=== PATIENT | female | born 1975 | race Caucasian/White ===

== ENCOUNTER 2016-10-12 07:05 | Emergency (ER) | payer OTHER ==
[2016-10-12 07:25] VITALS: BP 114/72; PULSE 67; O2SAT 98
[2016-10-12] MEDS ORDERED: MORPHINE SULFATE 4 MG INJ IV ONE (07:32)
[2016-10-12] MEDS ORDERED: Sodium Chloride 0.9% 1000 ML 1,000 ML IV STA (07:32)
[2016-10-12] MEDS ORDERED: Zofran 4 MG/2 ML VIAL IV ONE (07:32)
--- NOTE | 2016-10-12 07:39 | ERPHSYRPT ---
- History of Present Illness Time Seen by Provider: 10/12/16 07:32 Historian: patient Exam Limitations: no limitations Patient Subjective Stated Complaint: lt flank pain Triage Nursing Assessment: lt groin pain yesterday with lt flank pain startign at 0100 this am. nausea with no vomiting. normal bowels. unable to urinate Physician History: 41-year-old white female arrives with complaint of left groin and left lower quadrant abdominal pain since yesterday left flank pain since 1:00 this morning. Patient has had dysuria no hematuria she states she's been unable to urinate this morning other than a small amount.. She has nausea no vomiting no fevers no melena no hematochezia. Patient states that she has had kidney stones in the past and this feels similar. Past medical history includes lupus, kidney stones. Past surgical history includes cholecystectomy lithotripsy hysterectomy C- section. Timing/Duration: yesterday Activities at Onset: none Quality: cramping, sharpness Abdominal Pain Onset Location: LLQ, flank (left flank) Pain Radiation: LLQ, flank (left flank) Severity of Pain-Max: moderate Severity of Pain-Current: moderate Modifying Factors: Improves With: nothing Associated Symptoms: back (left flank pain), nausea, No chest pain, No diaphoresis, No diarrhea, No fever/chills, No fatigue, No headache, No heartburn , No loss of appetite, No neck pain, No rash, No shortness of breath, No syncope , No vomiting, No weakness Previous symptoms: same symptoms as today (similar symptoms with kidney stone in the past) Allergies/Adverse Reactions: erythromycin base Allergy (Verified 05/18/14 23:24) Sulfa (Sulfonamide Antibiotics) Allergy (Verified 10/12/16 07:25) Home Medications: Hydroxychloroquine Sulfate [Plaquenil] 200 mg PO DAILY 10/12/16 [History] Meloxicam 7.5 mg [Mobic 7.5 MG] 7.5 mg PO DAILY 10/12/16 [History] Hx Tetanus, Diphtheria Vaccination/Date Given: Yes Hx Influenza Vaccination/Date Given: Yes Hx Pneumococcal Vaccination/Date Given: No Immunizations Up to Date: Yes - Review of Systems Constitutional: No Fever, No Chills Eyes: No Symptoms Ears, Nose, & Throat: No Symptoms Respiratory: No Cough, No Dyspnea Cardiac: No Chest Pain, No Edema, No Syncope Abdominal/Gastrointestinal: Abdominal Pain (Left lower quadrant pain left groin pain), Nausea, No Vomiting, No Diarrhea, No Constipation, No Hematemesis, No Hematochezia, No Melena, No Dysphagia, No Appetite Changes Genitourinary Symptoms: Dysuria, Urinary Retention, Flank Pain (left flank pain) , No Frequency, No Hematuria, No Hesitancy, No Incontinence, No Urgency, No Menorrhagia, No , No Vaginal Bleeding, No Vaginal Discharge, No Vaginal Itching Musculoskeletal: No Back Pain, No Neck Pain Skin: No Rash Neurological: No Dizziness, No Focal Weakness, No Sensory Changes Psychological: No Symptoms Endocrine: No Symptoms All Other Systems: Reviewed and Negative - Past Medical History Pertinent Past Medical History: Yes History: Other Other Medical History: KIDNEY STONES. LUPUS - Past Surgical History Past Surgical History: Yes Gastrointestinal: Cholecystectomy Female Surgical History: No Pertinent History, Hysterectomy Other Surgical History: LITHOTRIPSY STONE REMOVAL - Social History Smoking Status: Never smoker Exposure to second hand smoke: No Drug Use: none Patient Lives Alone: No - Female History Hx Now: No - Nursing Vital Signs Nursing Vital Signs: Initial Vital Signs Temperature 98.3 F Temperature Source Oral Pulse Rate 67 Respiratory Rate 18 Blood Pressure [] 114/72 Pain Intensity 7 - Physical Exam General Appearance: moderate distress Eye Exam: PERRL/EOMI, eyes nml inspection Ears, Nose, Throat Exam: normal ENT inspection, pharynx normal, moist mucous membranes Neck Exam: normal inspection, non-tender, supple, full range of motion Respiratory Exam: normal breath sounds, lungs clear, No respiratory distress Cardiovascular Exam: regular rate/rhythm, normal heart sounds Gastrointestinal/Abdomen Exam: soft, normal bowel sounds, tenderness (llq tenderness), No distention, No mass, No guarding, No ecchymosis, No pulsatile mass, No rebound, No hernia, No hepatomegaly, No organomegaly, No splenomegaly Back Exam: normal range of motion, CVA tenderness (left flank tenderness), No vertebral tenderness, No rash, No decreased range of motion, No muscle spasm, No point tenderness Extremity Exam: normal inspection, normal range of motion, pelvis stable Neurologic Exam: alert, oriented x 3, cooperative, normal mood/affect, nml cerebellar function, sensation nml, No motor deficits Skin Exam: normal color, warm, dry SpO2 Interpretation: normal (98%) SpO2: 98 Oxygen Delivery: Room Air - Course Nursing assessment & vital signs reviewed: Yes - CT Exams Abdomen/Pelvis CT Interpretation: Discussed w/radiologist (CT abdomen and pelvis: Impression: New 2-3 mm urinary bladder calculus with minimal left ureteral prominence present from recent passage. Enlarging nonobstructing left renal calculus and new faint bilateral nephrocalcinosis.) Ordered Tests: Active Orders 24 hr Category Date Time Status IV Insertion STAT Care 10/12/16 07:32 Active ABDOMEN AND PELVIS W/0 CONTRAS [CT] Stat Exams 10/12/16 07:33 Completed CBC W DIFF Stat Lab 10/12/16 07:47 Completed CMP Stat Lab 10/12/16 07:47 Completed UA W/ MICROSCOPIC Stat Lab 10/12/16 08:50 Completed Medication Summary Discontinued Medications Generic Name Dose Route Start Last Admin Trade Name Freq PRN Reason Stop Dose Admin Sodium Chloride 1,000 mls @ 999 mls/hr 10/12/16 07:32 10/12/16 07:42 Sodium Chloride 0.9% 1000 Ml IV 10/12/16 08:32 999 mls/hr .Q1H1M STA Administration Sodium Chloride Confirm 10/12/16 07:41 Sodium Chloride 0.9% 1000 Ml Administered 10/12/16 07:42 Dose 1,000 mls @ ud .ROUTE .STK-MED ONE Morphine Sulfate 4 mg 10/12/16 07:32 10/12/16 07:42 Morphine Sulfate 4 Mg Inj IV 10/12/16 07:33 4 mg STAT ONE Administration Morphine Sulfate Confirm 10/12/16 07:41 Morphine Sulfate 4 Mg Inj Administered 10/12/16 07:42 Dose 4 mg .ROUTE .STK-MED ONE Ondansetron HCl 4 mg 10/12/16 07:32 10/12/16 07:42 Zofran 4 Mg/2 Ml Vial IV 10/12/16 07:33 4 mg STAT ONE Administration Ondansetron HCl Confirm 10/12/16 07:41 Zofran 4 Mg/2 Ml Vial Administered 10/12/16 07:42 Dose 4 mg .ROUTE .STK-MED ONE Lab/Rad Data: Laboratory Result Diagrams 10/12/16 07:47 10/12/16 07:47 Laboratory Results 10/12/16 10/12/16 10/12/16 Range/Units 08:50 07:47 07:47 WBC 8.4 (4.0-10.5) K/mm3 RBC 4.26 (4.1-5.4) M/mm3 Hgb 12.8 (12.0-16.0) gm/dl Hct 38.1 (35-47) % MCV 89.4 (78-100) fl MCH 30.0 (26-32) pg MCHC 33.6 (32-36) g/dl RDW 12.7 (11.5-14.0) % Plt Count 243 (150-450) K/mm3 MPV 10.6 H (6-9.5) fl Gran % 53.7 (36.0-66.0) % Lymphocytes % 32.3 (24.0-44.0) % Monocytes % 9.1 (0.0-12.0) % Eosinophils % 4.3 (0.00-5.0) % Basophils % 0.6 (0.0-0.4) % Basophils # 0.05 (0-0.4) Sodium 143 (136-145) mEq/L Potassium 3.9 (3.5-5.1) mEq/L Chloride 104 (98-107) mEq/L Carbon Dioxide 26.9 (21-32) mEq/L Anion Gap 15.9 H (5-15) MEQ/L BUN 12 (9-20) mg/dL Creatinine 0.88 (0.55-1.30) mg/dl Estimated GFR > 60 ML/MIN Glucose 106 (70-110) MG/DL Calcium 8.9 (8.5-10.1) mg/dL Total Bilirubin 0.30 (0.2-1.0) mg/dL AST 16 (15-37) U/L ALT 17 (12-78) U/L Alkaline Phosphatase 56 (46-116) U/L Serum Total Protein 7.0 (6.4-8.2) gm/dL Albumin 3.7 (3.4-5.0) g/dL Ur Collection Type CCMS Urine Color YELLOW (YELLOW) Urine Appearance HAZY (CLEAR) Urine pH 5.0 (5-6) Ur Specific [place] 1.030 (1.005-1.025) Urine Protein TRACE (Negative) Urine Ketones NEGATIVE (NEGATIVE) Urine Blood 50 (0-5) Lc/ul Urine Nitrite NEGATIVE (NEGATIVE) Urine Bilirubin NEGATIVE (NEGATIVE) Urine Urobilinogen NORMAL (0-1) mg/dL Ur Leukocyte Esterase TRACE (NEGATIVE) Urine Microscopic RBC 10-15 (0-2) /HPF Urine Microscopic WBC 5-10 (0-5) /HPF Ur Epithelial Cells PACKED (FEW) /HPF Urine Bacteria MODERATE (NEGATIVE) /HPF Urine Glucose NEGATIVE (NEGATIVE) mg/dL Specimen Received 0850 10/12 - Progress Progress: improved Progress Note: 10/12/16 09:02 CT of the abdomen and pelvis was ordered without contrast secondary to the left lower quadrant abdominal pain left flank pain and history of kidney stones in the past with similar symptoms. CT of the abdomen with pelvis showed a new 2-3 mm urinary bladder calculus with minimal left ureteral prominence present from a recent passage. There was enlarging nonobstructing left renal calculus and new faint bilateral nephrocalcinosis noted. Patient is feeling better after IV morphine Zofran IV normal saline.. Will plan to discharge patient with Coffey have her strain her urine plenty of fluids, - Departure Time of Disposition: 09:08 Departure Disposition: Home Clinical Impression: Left flank pain Urolithiasis Qualifiers: Urinary calculus location: bladder Qualified Code(s): N21.0 - Calculus in bladder Condition: Fair Critical Care Time: No Referrals: SHIRA MOJICA MD [Primary Care Provider] - Additional Instructions: Return home. Plenty of fluids. Strain all urine. Coffey 5/325 #15 one orally every 4-6 hours as needed for pain. Follow-up with Dr. Mojica. Return for acute distress or for severe symptoms. Prescriptions: Hydrocodone/Acetaminophen [Coffey 5-325 Tablet] 1 tab PO Q4-6HPRN PRN #15 tablet PRN Reason: Pain
[2016-10-12] MEDS ORDERED: MORPHINE SULFATE 4 MG INJ ONE (07:41)
[2016-10-12] MEDS ORDERED: Sodium Chloride 0.9% 1000 ML 1,000 ML ONE (07:41)
[2016-10-12] MEDS ORDERED: Zofran 4 MG/2 ML VIAL ONE (07:41)
[2016-10-12 08:13] LABS: BASOPHIL % 0.6 % (0.0-0.4); Eosinophil % 4.3 % (0.00-5.0); Granulocytes % 53.7 % (36.0-66.0); Lymphocytes % 32.3 % (24.0-44.0); Mean Cell Volume 89.4 fl (78-100); Mean Platelet Volume 10.6 fl (6-9.5); Monocytes % 9.1 % (0.0-12.0); Platelet Count 243 K/mm3 (150-450); Red Blood Count 4.26 M/mm3 (4.1-5.4); Red Cell Distribution Width 12.7 % (11.5-14.0); White Blood Count 8.4 K/mm3 (4.0-10.5)
[2016-10-12 08:34] LABS: ALBUMIN 3.7 g/dL (3.4-5.0); ALKALINE PHOSPHATASE 56 U/L (46-116); ANION GAP 15.9 MEQ/L (5-15); BLOOD UREA NITROGEN 12 mg/dL (9-20); CHLORIDE 104 mEq/L (98-107); Carbon Dioxide 26.9 mEq/L (21-32); Glucose 106 MG/DL (70-110); Potassium 3.9 mEq/L (3.5-5.1); SGOT/AST 16 U/L (15-37); SGPT/ALT 17 U/L (12-78); SODIUM 143 mEq/L (136-145)
--- NOTE | 2016-10-12 08:37 | XRAY ---
Indication: Left flank pain. Nausea. Multiple contiguous axial images obtained through the abdomen and pelvis without contrast using renal stone protocol. Comparison: November 26, 2014. Lung bases are clear. Heart is not enlarged. There is now a 2-3 mm left posterior urinary bladder calculus. Left ureter is slightly prominent presumed from recent passage of said calculus. No hydronephrosis or perinephric fluid. Previous nonobstructing 5 mm left lower renal calculus today measures 9 mm. There is now faint bilateral nephrocalcinosis. Noncontrasted stomach and bowel loops appear nonobstructed. Normal appendix. No free fluid/air. Again previous cholecystectomy. Remaining liver, pancreas, spleen, adrenal glands, bladder, uterus, and aorta appear unremarkable for noncontrast exam. Osseous structures intact. Impression: New 2-3 mm urinary bladder calculus with minimal left ureteral prominence presumed from recent passage. Enlarging nonobstructing left renal calculus and new faint bilateral nephrocalcinosis. CT DI 14.07
[2016-10-12 08:58] LABS: Bilirubin NEGATIVE (NEGATIVE); Blood 50 Ery/ul (0-5); COMPLETE URINE MICROSCOPIC? YES; Collection Type CCMS; Glucose NEGATIVE (NEGATIVE); Leukocyte Esterase TRACE (NEGATIVE)
[2016-10-12 09:01] LABS: Epithelial Cells PACKED /HPF (FEW)
[2016-10-12 09:02] LABS: Bacteria MODERATE /HPF (NEGATIVE)
[2016-10-12 09:07] LABS: ADD URINE CULTURE? YES (NO)
== END 2016-10-12 09:23 | disposition home or self-care (01) ==
LOC: ED 07:05
DX: R10.32 Left lower quadrant pain (principal); R11.0 Nausea
CPT/HCPCS: 36000; 36415; 74176; 80053; 81000; 85025; 87086; 96360; 96374; 96375; 99284; J2270; J2405

== ENCOUNTER 2017-03-20 09:49 | Emergency (ER) | payer OTHER ==
[2017-03-20 10:02] VITALS: O2SAT 97
[2017-03-20] MEDS ORDERED: BENADRYL 50 MG/ML IV ONE (10:09)
[2017-03-20] MEDS ORDERED: Sodium Chloride 0.9% 1000 ML 1,000 ML IV STA ×2 (10:09→11:51)
[2017-03-20] MEDS ORDERED: MORPHINE SULFATE 10 MG/ML IV ONE ×3 (10:09→11:35)
[2017-03-20] MEDS ORDERED: BENADRYL 50 MG/ML ONE (10:15)
[2017-03-20] MEDS ORDERED: MORPHINE SULFATE 10 MG/ML ONE ×3 (10:16→11:38)
[2017-03-20] MEDS ORDERED: Sodium Chloride 0.9% 1000 ML 1,000 ML ONE ×2 (10:16→11:52)
--- NOTE | 2017-03-20 10:17 | ERPHSYRPT ---
- History of Present Illness Time Seen by Provider: 03/20/17 09:58 Historian: patient Patient Subjective Stated Complaint: Pt states "I had a lithrotripsy done a week and half ago and I knew I was going to pass a stone but I am not sure if it is stuck or what but it really hurts. The pain started at 5 am and it is constant. I vomited this morning as well." Triage Nursing Assessment: Pt alert and oriented X 3, skin pwd. Pt ambulates without difficulty, able to speak in clear full sentences. no apparent respiratory difficutly, holding left lower back Physician History: CC: left flank pain Hx: 41 y/o patient of Dr Gandhi with hx of renal stone disease post lithotripsy. She has hx of lupus. She has new worsened left flank pain radiating to groin, unable to urinate since last night. No fever. Vomited. Hx of hysterectomy. Pain is in left flank, severe, sharp. Timing/Duration: today Allergies/Adverse Reactions: erythromycin base Allergy (Verified 05/18/14 23:24) Sulfa (Sulfonamide Antibiotics) Allergy (Verified 10/12/16 07:25) Home Medications: Hydroxychloroquine Sulfate [Plaquenil] 200 mg PO DAILY 10/12/16 [History] Meloxicam 7.5 mg [Mobic 7.5 MG] 7.5 mg PO DAILY 10/12/16 [History] Hx Tetanus, Diphtheria Vaccination/Date Given: Yes Hx Influenza Vaccination/Date Given: No Hx Pneumococcal Vaccination/Date Given: No Immunizations Up to Date: Yes - Review of Systems Constitutional: No Fever, No Chills Eyes: No Symptoms Ears, Nose, & Throat: No Symptoms Respiratory: No Cough, No Dyspnea Cardiac: No Chest Pain Abdominal/Gastrointestinal: Abdominal Pain, Nausea, Vomiting, No Diarrhea Genitourinary Symptoms: Urinary Retention, Flank Pain (left flank) Musculoskeletal: Back Pain (left) Skin: No Rash Neurological: No Headache All Other Systems: Reviewed and Negative - Past Medical History Pertinent Past Medical History: Yes History: Other Other Medical History: KIDNEY STONES. LUPUS - Past Surgical History Past Surgical History: Yes Gastrointestinal: Cholecystectomy Female Surgical History: No Pertinent History, Hysterectomy Other Surgical History: LITHOTRIPSY STONE REMOVAL - Social History Smoking Status: Never smoker Exposure to second hand smoke: No Drug Use: none Patient Lives Alone: No - Female History Hx Last Menstrual Period: hysterectomy Hx Now: No - Nursing Vital Signs Nursing Vital Signs: Initial Vital Signs Temperature 97.9 F 03/20/17 09:57 Pulse Rate 66 03/20/17 09:57 Respiratory Rate 18 03/20/17 09:57 Blood Pressure 118/86 03/20/17 09:57 O2 Sat by Pulse Oximetry 97 03/20/17 09:57 Pain Scale Pain Intensity 0 - Physical Exam General Appearance: alert, other (uncomfortable appearing) Eye Exam: PERRL/EOMI Ears, Nose, Throat Exam: normal ENT inspection, moist mucous membranes Neck Exam: normal inspection, non-tender, supple Respiratory Exam: normal breath sounds Cardiovascular Exam: regular rate/rhythm Gastrointestinal/Abdomen Exam: soft, tenderness (some left) Back Exam: CVA tenderness (left) Extremity Exam: normal inspection, normal range of motion Neurologic Exam: alert, oriented x 3, cooperative, sensation nml, No motor deficits Skin Exam: warm, dry, No rash SpO2 Interpretation: normal SpO2: 97 Oxygen Delivery: Room Air - Course Nursing assessment & vital signs reviewed: Yes - Radiology Exams KUB X-ray Interpretation: Teleradiologist Report (2 sub 5mm cacifications in left pelvis) - Radiology Ultrasound Exam kidney Ultrasound: tele radiology report (left renal calculus without hydronephrosis or evidence of obstructive uropathy; left renal hyperemic color flow.) Ordered Tests: Active Orders 24 hr Category Date Time Status Cath for Specimen-Straight STAT Care 03/20/17 10:10 Active IV Insertion STAT Care 03/20/17 10:09 Active NPO (ED) STAT Care 03/20/17 10:09 Active KIDNEY [US] Stat Exams 03/20/17 10:10 Completed KUB Stat Exams 03/20/17 10:10 Completed CBC W DIFF Stat Lab 03/20/17 10:26 Completed CMP Stat Lab 03/20/17 10:26 Completed CULTURE,URINE Stat Lab 03/20/17 11:30 Received UA W/ MICROSCOPIC Stat Lab 03/20/17 11:30 Completed Medication Summary Generic Name Dose Route Start Last Admin Trade Name Freq PRN Reason Stop Dose Admin Ceftriaxone Sodium/Dextrose 1 g in 50 mls @ 100 mls/hr 03/20/17 13:09 Rocephin 1 Gm-D5w 50 Ml Bag IV 03/20/17 13:38 STAT STA Discontinued Medications Generic Name Dose Route Start Last Admin Trade Name Bernarda PRN Reason Stop Dose Admin Diphenhydramine HCl 30 mg 03/20/17 10:09 03/20/17 10:18 Benadryl 50 Mg/Ml IV 03/20/17 10:10 30 mg STAT ONE Administration Diphenhydramine HCl Confirm 03/20/17 10:15 Benadryl 50 Mg/Ml Administered 03/20/17 10:16 Dose 50 mg .ROUTE .STK-MED ONE Sodium Chloride 1,000 mls @ 999 mls/hr 03/20/17 10:09 03/20/17 10:27 Sodium Chloride 0.9% 1000 Ml IV 03/20/17 11:09 999 mls/hr .Q1H1M STA Administration Sodium Chloride Confirm 03/20/17 10:16 Sodium Chloride 0.9% 1000 Ml Administered 03/20/17 10:17 Dose 1,000 mls @ ud .ROUTE .STK-MED ONE Sodium Chloride 1,000 mls @ 999 mls/hr 03/20/17 11:51 03/20/17 11:53 Sodium Chloride 0.9% 1000 Ml IV 03/20/17 12:51 999 mls/hr .Q1H1M STA Administration Sodium Chloride Confirm 03/20/17 11:52 Sodium Chloride 0.9% 1000 Ml Administered 03/20/17 11:53 Dose 1,000 mls @ ud .ROUTE .STK-MED ONE Ketorolac Tromethamine 30 mg 03/20/17 11:35 03/20/17 11:39 Toradol 30 Mg Injection IV 03/20/17 11:36 30 mg STAT ONE Administration Ketorolac Tromethamine Confirm 03/20/17 11:38 Toradol 30 Mg Injection Administered 03/20/17 11:39 Dose 30 mg .ROUTE .STK-MED ONE Morphine Sulfate 6 mg 03/20/17 10:09 03/20/17 10:18 Morphine Sulfate 10 Mg/Ml IV 03/20/17 10:10 6 mg STAT ONE Administration Morphine Sulfate Confirm 03/20/17 10:16 Morphine Sulfate 10 Mg/Ml Administered 03/20/17 10:17 Dose 10 mg .ROUTE .STK-MED ONE Morphine Sulfate 6 mg 03/20/17 10:34 03/20/17 10:35 Morphine Sulfate 10 Mg/Ml IV 03/20/17 10:35 6 mg STAT ONE Administration Morphine Sulfate Confirm 03/20/17 10:35 Morphine Sulfate 10 Mg/Ml Administered 03/20/17 10:36 Dose 10 mg .ROUTE .STK-MED ONE Morphine Sulfate 6 mg 03/20/17 11:35 03/20/17 11:40 Morphine Sulfate 10 Mg/Ml IV 03/20/17 11:36 6 mg STAT ONE Administration Morphine Sulfate Confirm 03/20/17 11:38 Morphine Sulfate 10 Mg/Ml Administered 03/20/17 11:39 Dose 10 mg .ROUTE .STK-MED ONE Ondansetron HCl 4 mg 03/20/17 10:24 03/20/17 10:28 Zofran 4 Mg/2 Ml Vial IV 03/20/17 10:25 4 mg STAT ONE Administration Ondansetron HCl Confirm 03/20/17 10:27 Zofran 4 Mg/2 Ml Vial Administered 03/20/17 10:28 Dose 4 mg .ROUTE .STK-MED ONE Lab/Rad Data: Laboratory Result Diagrams 03/20/17 10:26 03/20/17 10:26 Laboratory Results 03/20/17 03/20/17 03/20/17 Range/Units 11:30 10:26 10:26 WBC 12.7 H (4.0-10.5) K/mm3 RBC 4.38 (4.1-5.4) M/mm3 Hgb 13.0 (12.0-16.0) gm/dl Hct 39.2 (35-47) % MCV 89.5 (78-100) fl MCH 29.7 (26-32) pg MCHC 33.2 (32-36) g/dl RDW 12.4 (11.5-14.0) % Plt Count 268 (150-450) K/mm3 MPV 10.2 H (6-9.5) fl Gran % 75.9 H (36.0-66.0) % Lymphocytes % 16.2 L (24.0-44.0) % Monocytes % 5.9 (0.0-12.0) % Eosinophils % 1.7 (0.00-5.0) % Basophils % 0.3 (0.0-0.4) % Basophils # 0.04 (0-0.4) Sodium 140 (136-145) mEq/L Potassium 4.0 (3.5-5.1) mEq/L Chloride 105 (98-107) mEq/L Carbon Dioxide 27.8 (21-32) mEq/L Anion Gap 11.0 (5-15) MEQ/L BUN 10 (9-20) mg/dL Creatinine 0.95 (0.55-1.30) mg/dl Estimated GFR > 60 ML/MIN Glucose 108 (70-110) MG/DL Calcium 8.8 (8.5-10.1) mg/dL Total Bilirubin 0.40 (0.2-1.0) mg/dL AST 14 L (15-37) U/L ALT 21 (12-78) U/L Alkaline Phosphatase 60 (46-116) U/L Serum Total Protein 7.5 (6.4-8.2) gm/dL Albumin 3.9 (3.4-5.0) g/dL Ur Collection Type CATH Urine Color SUZI (YELLOW) Urine Appearance CLOUDY (CLEAR) Urine pH 5.0 (5-6) Ur Specific [place] 1.025 (1.005-1.025) Urine Protein 500 (Negative) Urine Ketones NEGATIVE (NEGATIVE) Urine Blood 250 (0-5) Lc/ul Urine Nitrite NEGATIVE (NEGATIVE) Urine Bilirubin NEGATIVE (NEGATIVE) Urine Urobilinogen NORMAL (0-1) mg/dL Ur Leukocyte Esterase 1+ (NEGATIVE) Urine Microscopic RBC >100 (0-2) /HPF Urine Microscopic WBC 5-10 (0-5) /HPF Ur Epithelial Cells MODERATE (FEW) /HPF Urine Bacteria MODERATE (NEGATIVE) /HPF Urine Culture Reflexed YES (NO) Urine Glucose NEGATIVE (NEGATIVE) mg/dL Specimen Received 03/20/17 1130 - Progress Progress Note: 03/20/17 10:20 IV pain medication ordered. Will get renal sonogram to assess for hydronephrosis. 03/20/17 11:37 Pt has been medicated for pain. Await urine. 03/20/17 13:10 She has pain meds at home. CAlled Dr Gandhi who advised rocpehin/keflex and office follow up. Pt and family given results. She does not appears to have urine retention as small amount dark urine in bladder. Counseled pt/family regarding: lab results, diagnosis, need for follow-up, rad results - Departure Time of Disposition: 13:10 Departure Disposition: Home Clinical Impression: Left flank pain, History of lithotripsy Condition: Stable Critical Care Time: No Referrals: SHIRA MOJICA MD [Primary Care Provider] - KATHY GANDHI [COURTESY STAFF] - Instructions: Kidney Stones Additional Instructions: Push oral fluids. Take your norco as already prescribed. No driving today or while taking norco. Start keflex in AM. Follow up this week with Dr Gandhi. Return for fever, uncontrolled pain, recurrent vomiting or concerns. Prescriptions: Cephalexin Mh 500 mg [Keflex 500 mg] 1 cap PO QID #28 capsule
[2017-03-20] MEDS ORDERED: Zofran 4 MG/2 ML VIAL IV ONE (10:24)
[2017-03-20 10:26] LABS: BASOPHIL % 0.3 % (0.0-0.4); Eosinophil % 1.7 % (0.00-5.0); Granulocytes % 75.9 % (36.0-66.0); Lymphocytes % 16.2 % (24.0-44.0); Mean Cell Volume 89.5 fl (78-100); Mean Corpuscular Hemoglobin 29.7 pg (26-32); Mean Platelet Volume 10.2 fl (6-9.5); Monocytes % 5.9 % (0.0-12.0); Platelet Count 268 K/mm3 (150-450); Red Blood Count 4.38 M/mm3 (4.1-5.4); Red Cell Distribution Width 12.4 % (11.5-14.0); White Blood Count 12.7 K/mm3 (4.0-10.5)
[2017-03-20] MEDS ORDERED: Zofran 4 MG/2 ML VIAL ONE (10:27)
[2017-03-20 10:53] LABS: ALBUMIN 3.9 g/dL (3.4-5.0); ALKALINE PHOSPHATASE 60 U/L (46-116); BLOOD UREA NITROGEN 10 mg/dL (9-20); CHLORIDE 105 mEq/L (98-107); Carbon Dioxide 27.8 mEq/L (21-32); Glucose 108 MG/DL (70-110); SGOT/AST 14 U/L (15-37); SGPT/ALT 21 U/L (12-78); SODIUM 140 mEq/L (136-145); Total Protein 7.5 gm/dL (6.4-8.2)
--- NOTE | 2017-03-20 11:14 | XRAY ---
Indication: Left flank pain. Renal stone disease. Two-dimensional renal sonogram performed. Comparison: None Both kidneys normal in reniform shape with normal color perfusion. Right kidney measures 10.3 x 3.8 x 4.6 cm and the left measures 10.9 x 5.4 x 4.1 cm. Left kidney demonstrates a 1.3 cm lower pole calculus without hydronephrosis and a subcentimeter lower pole cyst. Hyperemic left renal color Doppler flow, possibly inflammatory/infectious. Right kidney negative for solid/cystic mass or hydronephrosis. Cortical medullary differentiation preserved without cortical thinning. Images of the urinary bladder grossly unremarkable. Ureteral jets not seen within the allotted exam time. Impression: 1. Left renal calculus without hydronephrosis or evidence for obstructive uropathy. Also small subcentimeter cyst. 2. Also left renal hyperemic color flow. Rule out inflammatory/infectious process. 3. Negative right renal sonogram.
--- NOTE | 2017-03-20 11:21 | XRAY ---
Indication: Left flank pain. Hematuria. Status post lithotripsy 10 days ago. Comparison: None KUB nonacute and nonobstructed with cholecystectomy clips and CT proven left lower renal calculus. 2 sub-5 mm calcifications in the left pelvis, either phleboliths versus distal ureteral calculi. Remaining solid organs and osseous structures unremarkable.
[2017-03-20] MEDS ORDERED: TORAdol 30 mg Injection IV ONE (11:35)
[2017-03-20] MEDS ORDERED: TORAdol 30 mg Injection ONE (11:38)
[2017-03-20 12:19] LABS: Collection Type CATH
[2017-03-20 12:20] LABS: ADD URINE CULTURE? YES (NO); Bacteria MODERATE /HPF (NEGATIVE); Bilirubin NEGATIVE (NEGATIVE); Blood 250 Ery/ul (0-5); COMPLETE URINE MICROSCOPIC? YES; Epithelial Cells MODERATE /HPF (FEW); Glucose NEGATIVE (NEGATIVE); Leukocyte Esterase 1+ (NEGATIVE)
[2017-03-20] MEDS ORDERED: ROCEPHIN 1 Gm-D5w 50 ml Bag** 1 G/50 ML IVPB IV STA (13:09)
[2017-03-20] MEDS ORDERED: ROCEPHIN 1 Gm-D5w 50 ml Bag** 1 G/50 ML IVPB IV ONE (13:17)
[2017-03-20 14:01] VITALS: BP 111/74; PULSE 105
== END 2017-03-20 14:01 | disposition home or self-care (01) ==
LOC: ED 09:49
DX: R10.9 Unspecified abdominal pain (principal); Z98.890 Other specified postprocedural states; R33.9 Retention of urine, unspecified; R11.2 Nausea with vomiting, unspecified; M54.9 Dorsalgia, unspecified
CPT/HCPCS: 36000; 36415; 74000; 76770; 80053; 81000; 85025; 87086; 96360; 96361; 96372; 96374; 96375; 99284; J0696; J1200; J1885; J2270; J2405; P9612

== ENCOUNTER 2022-03-07 15:07 | Emergency (ER) | payer OTHER ==
[2022-03-07] MEDS ORDERED: Zofran 4 MG/2 ML VIAL ONE (17:09)
[2022-03-07] MEDS ORDERED: Sodium Chloride 0.9% 1000 ML 1,000 ML ONE (17:09)
[2022-03-07] MEDS ORDERED: Sodium Chloride 0.9% 1000 ML 1,000 ML IV STA (17:10)
[2022-03-07] MEDS ORDERED: Zofran 4 MG/2 ML VIAL IV ONE (17:10)
[2022-03-07 17:15] LABS: Appearance CLEAR (CLEAR); Bilirubin NEGATIVE (NEGATIVE); Dipstick done @ ? MAIN LAB; Glucose NEGATIVE (NEGATIVE); Ketones NEGATIVE (NEGATIVE); Nitrite NEGATIVE (NEGATIVE); Ph 6.5 (5-6); Protein,Urine Dip NEGATIVE (Negative); RBC TRACE-INTACT Ery/ul (0-5); Specific Gravity 1.025 (1.005-1.025); Urobilinogen 0.2 mg/dL (0-1)
[2022-03-07 17:16] LABS: Bacteria FEW /HPF (NEGATIVE); RBC 0-2 /HPF (0-2); WBC 0-2 /HPF (0-5)
[2022-03-07 17:21] LABS: Urine Cultured Indicated? NO
[2022-03-07 17:28] LABS: Absolute Neutrophil Ct (ANC) 9.06 x10^3/uL (1.4-6.9); Basophil (Absolute #) 0.14 x10^3/uL (0-0.4); Eosinophil % 2.5 % (0.00-5.0); Eosinophil (Absolute #) 0.35 x10^3/uL (0-0.5); Hematocrit 42.3 % (35-47); Hemoglobin 14.7 g/dL (12.0-16.0); Lymphocyte (Absolute #) 3.34 x10^3/uL (1.0-4.6); Lymphocytes % 24.2 % (24.0-44.0); Mean Cell Volume 89.4 fL (78-100); Mean Corpuscular Hemoglobin 31.1 pg (26-32); Mean Corpuscular Hgb Concent. 34.8 g/dL (32-36); Mean Platelet Volume 10.6 fL (7.5-11.0); Monocyte (Absolute #) 0.85 x10^3/uL (0.0-1.3); Monocytes % 6.2 % (0.0-12.0); Neutrophil % 65.7 % (36.0-66.0); Platelet Count 316 x10^3/uL (150-450); Red Blood Count 4.73 x10^6/uL (4.1-5.4); Red Cell Distribution Width 12.3 % (11.5-14.0); White Blood Count 13.8 x10^3/uL (4.0-10.5)
[2022-03-07 17:38] LABS: ALBUMIN 4.6 g/dL (3.5-5.0); ALKALINE PHOSPHATASE 83 U/L (38-126); ANION GAP 15.3 MEQ/L (5-15); BLOOD UREA NITROGEN 8 mg/dL (7-17); CHLORIDE 104 mmol/L (98-107); Calcium 9.6 mg/dL (8.4-10.2); Carbon Dioxide 21 mmol/L (22-30); Creatinine 1 0.56 mg/dL (0.52-1.04); EST GLOMERULAR FILTRATION RATE > 60.0 ML/MIN; Glucose 95 mg/dL (74-106); Potassium 4.4 mmol/L (3.5-5.1); SGOT/AST 22 U/L (14-36); SGPT/ALT 22 U/L (0-35); SODIUM 137 mmol/L (137-145); Total Protein 8.2 g/dL (6.3-8.2)
[2022-03-07] MEDS ORDERED: MORPHINE SULFATE 4 MG INJ IV ONE ×2 (18:25→20:35)
--- NOTE | 2022-03-07 18:29 | ERPHSYRPT ---
- History of Present Illness Time Seen by Provider: 03/07/22 16:00 Historian: patient Exam Limitations: no limitations Patient Subjective Stated Complaint: " I started having left sided lower abdominal pains last night and they have got worse today. I think I may have a kidney stone." Triage Nursing Assessment: Pt presents to ER with complaints of LLQ/groin pain that began last night, worsened today. Stats pain is 7/10 scale, believes maybe kidney stone. Hx of kidney stones. Pt is alert and oriented x 3. Skin is pink, warm, and dry. Respirations are easy and unlabored at this time. Denies vomiting or diarrhea. Slight nausea. Denies urinary difficulties. Physician History: Patient is a 46-year-old female presents to our ED for evaluation of left flank pain. Pain started last night. Patient has a history of kidney stones. Patient believes she is experiencing renal colic from a kidney stone. Pain is intermittent. Pain is mild to moderate in intensity. No specific worsening improving factors. No trauma. No fever. No urinary symptomology. Patient is otherwise healthy. She voices no other complaints or concerns at this time. Portions of this note were created with voice recognition technology. There may be grammatical, spelling, punctuation or sound alike errors Timing/Duration: yesterday Activities at Onset: none Quality: aching Abdominal Pain Onset Location: flank Pain Radiation: no radiation Severity of Pain-Max: moderate Severity of Pain-Current: moderate Modifying Factors: Improves With: nothing Associated Symptoms: denies symptoms Previous symptoms: same symptoms as today Allergies/Adverse Reactions: ketorolac [From Toradol] Allergy (Severe, Verified 03/07/22 16:01) Vomiting erythromycin base Allergy (Intermediate, Verified 03/07/22 16:01) Hives Sulfa (Sulfonamide Antibiotics) Allergy (Intermediate, Verified 03/07/22 16:01) Hives sulfamethoxazole [From Bactrim] Allergy (Intermediate, Verified 03/07/22 16:01) Hives trimethoprim [From Bactrim] Allergy (Intermediate, Verified 03/07/22 16:01) Hives Hx Tetanus, Diphtheria Vaccination/Date Given: No Hx Influenza Vaccination/Date Given: Yes Hx Pneumococcal Vaccination/Date Given: No Immunizations Up to Date: Yes Travel Risk - International Travel Have you traveled outside of the country in past 3 weeks: No - Coronavirus Screening Are you exhibiting any of the following symptoms?: No Close contact with a COVID-19 positive Pt in past 14-21 Days: No - Vaccine Status Have you recieved a Covid-19 vaccination: No - Review of Systems Constitutional: No Symptoms, No Fever, No Chills Eyes: No Symptoms Ears, Nose, & Throat: No Symptoms Respiratory: No Symptoms, No Cough, No Dyspnea Cardiac: No Symptoms, No Chest Pain, No Edema, No Syncope Abdominal/Gastrointestinal: No Symptoms, No Abdominal Pain, No Nausea, No Vomiting, No Diarrhea Genitourinary Symptoms: No Symptoms, No Dysuria Musculoskeletal: No Symptoms, No Back Pain, No Neck Pain Skin: No Symptoms, No Rash Neurological: No Symptoms, No Dizziness, No Focal Weakness, No Sensory Changes Psychological: No Symptoms Endocrine: No Symptoms Hematologic/Lymphatic: No Symptoms Immunological/Allergic: No Symptoms All Other Systems: Reviewed and Negative - Past Medical History Pertinent Past Medical History: Yes History: Other Other Medical History: KIDNEY STONES. LUPUS - Past Surgical History Past Surgical History: Yes Gastrointestinal: Cholecystectomy Female Surgical History: Hysterectomy Other Surgical History: LITHOTRIPSY STONE REMOVAL - Social History Smoking Status: Never smoker Exposure to second hand smoke: No Drug Use: none Patient Lives Alone: No - Female History Hx Now: No - Nursing Vital Signs Nursing Vital Signs: Initial Vital Signs Temperature 97.0 F 03/07/22 15:54 Pulse Rate 81 03/07/22 15:54 Respiratory Rate 18 03/07/22 15:54 Blood Pressure 140/82 03/07/22 15:54 O2 Sat by Pulse Oximetry 98 03/07/22 15:54 Pain Scale Pain Intensity 7 - Physical Exam General Appearance: no apparent distress, alert Eye Exam: PERRL/EOMI, eyes nml inspection Ears, Nose, Throat Exam: normal ENT inspection, pharynx normal, moist mucous membranes Neck Exam: normal inspection, non-tender, supple, full range of motion Respiratory Exam: normal breath sounds, lungs clear, airway intact, No respiratory distress Cardiovascular Exam: regular rate/rhythm, normal heart sounds, normal peripheral pulses Gastrointestinal/Abdomen Exam: soft, other (Left flank tenderness. Mild left CVA.), No tenderness, No mass Back Exam: normal inspection, normal range of motion, No CVA tenderness, No vertebral tenderness Extremity Exam: normal inspection, normal range of motion, pelvis stable Neurologic Exam: alert, oriented x 3, cooperative, normal mood/affect, nml cerebellar function, sensation nml, No motor deficits Skin Exam: normal color, warm, dry SpO2 Interpretation: normal SpO2: 100 O2 Delivery: Room Air - Course Nursing assessment & vital signs reviewed: Yes - CT Exams Abdomen/Pelvis CT Interpretation: Tele-radiologist Report (Compared to 10/12/2016 new 5 mm left and 1 mm right nonobstructing calculi normal appendix new small cul-de-sac fluid presumed physiologic new small focus mid descending colon epiploic appendagitis.) Ordered Tests: Active Orders 24 hr Category Date Time Status IV Insertion STAT Care 03/07/22 17:10 Active ABDOMEN AND PELVIS W/0 CONTRAS [CT] Stat Exams 03/07/22 18:25 Taken CBC W DIFF Stat Lab 03/07/22 17:15 Completed CMP Stat Lab 03/07/22 17:15 Completed HCG,QUALITATIVE URINE Stat Lab 03/07/22 17:13 Completed UA W/RFX CULTURE Stat Lab 03/07/22 16:07 Completed Medication Summary Discontinued Medications Generic Name Dose Route Start Last Admin Trade Name Freq PRN Reason Stop Dose Admin Hydrocodone Bitart/Acetaminophen 4 tab 03/07/22 20:38 Hydrocodone/Apap 5/325 1 Tab Tablet PO 03/07/22 20:39 SENT HOME W/ PATIENT ONE Sodium Chloride 1,000 mls @ 999 mls/hr 03/07/22 17:10 03/07/22 18:13 Sodium Chloride 0.9% 1000 Ml IV 03/07/22 18:10 Infused .Q1H1M STA Infusion Sodium Chloride Confirm 03/07/22 17:09 Sodium Chloride 0.9% 1000 Ml Administered 03/07/22 17:10 Dose 1,000 mls @ ud .ROUTE .STK-MED ONE Morphine Sulfate 4 mg 03/07/22 18:25 03/07/22 18:49 Morphine Sulfate 4 Mg/Ml Injection IV 03/07/22 18:26 4 mg STAT ONE Administration Morphine Sulfate Confirm 03/07/22 18:48 Morphine Sulfate 4 Mg/Ml Injection Administered 03/07/22 18:49 Dose 4 mg .ROUTE .STK-MED ONE Morphine Sulfate 4 mg 03/07/22 20:35 Morphine Sulfate 4 Mg/Ml Injection IV 03/07/22 20:36 STAT ONE Ondansetron HCl 4 mg 03/07/22 17:10 03/07/22 17:12 Ondansetron Hcl 4 Mg/2 Ml Vial IV 03/07/22 17:11 4 mg STAT ONE Administration Ondansetron HCl Confirm 03/07/22 17:09 Ondansetron Hcl 4 Mg/2 Ml Vial Administered 03/07/22 17:10 Dose 4 mg .ROUTE .STK-MED ONE Lab/Rad Data: Laboratory Result Diagrams 03/07/22 17:15 03/07/22 17:15 Laboratory Results 03/07/22 03/07/22 03/07/22 Range/Units 17:15 17:15 17:13 WBC 13.8 H (4.0-10.5) x10^3/uL RBC 4.73 (4.1-5.4) x10^6/uL Hgb 14.7 (12.0-16.0) g/dL Hct 42.3 (35-47) % MCV 89.4 (78-100) fL MCH 31.1 (26-32) pg MCHC 34.8 (32-36) g/dL RDW 12.3 (11.5-14.0) % Plt Count 316 (150-450) x10^3/uL MPV 10.6 (7.5-11.0) fL Gran % 65.7 (36.0-66.0) % Immature Gran % (Auto) 0.4 (0.00-0.4) % Nucleat RBC Rel Count 0.0 (0.00-0.1) % Eos # (Auto) 0.35 (0-0.5) x10^3/uL Immature Gran # (Auto) 0.06 H (0.00-0.03) x10^3u/L Absolute Lymphs (auto) 3.34 (1.0-4.6) x10^3/uL Absolute Monos (auto) 0.85 (0.0-1.3) x10^3/uL Absolute Nucleated RBC 0.00 (0.00-0.01) x10^3u/L Lymphocytes % 24.2 (24.0-44.0) % Monocytes % 6.2 (0.0-12.0) % Eosinophils % 2.5 (0.00-5.0) % Basophils % 1.0 (0.0-0.4) % Absolute Granulocytes 9.06 H (1.4-6.9) x10^3/uL Basophils # 0.14 (0-0.4) x10^3/uL Sodium 137 (137-145) mmol/L Potassium 4.4 (3.5-5.1) mmol/L Chloride 104 (98-107) mmol/L Carbon Dioxide 21 L (22-30) mmol/L Anion Gap 15.3 H (5-15) MEQ/L BUN 8 (7-17) mg/dL Creatinine 0.56 (0.52-1.04) mg/dL Estimated GFR > 60.0 ML/MIN Glucose 95 (74-106) mg/dL Calcium 9.6 (8.4-10.2) mg/dL Total Bilirubin 0.50 (0.2-1.3) mg/dL AST 22 (14-36) U/L ALT 22 (0-35) U/L Alkaline Phosphatase 83 (38-126) U/L Serum Total Protein 8.2 (6.3-8.2) g/dL Albumin 4.6 (3.5-5.0) g/dL Urinalys Dipstick Clnc Urine Color (YELLOW) Urine Appearance (CLEAR) Urine pH (5-6) Ur Specific [place] (1.005-1.025) POC Urine Protein Conf (Negative) Urine Ketones (NEGATIVE) Urine Nitrite (NEGATIVE) Urine Bilirubin (NEGATIVE) Urine Urobilinogen (0-1) mg/dL Urine Leukocytes (NEGATIVE) Urine WBC (Auto) (0-5) /HPF Urine RBC (Auto) (0-2) /HPF U Epithel Cells (Auto) (FEW) /HPF Urine Bacteria (Auto) (NEGATIVE) /HPF Urine RBC (0-5) Lc/ul Ur Culture Indicated? Urine Glucose (NEGATIVE) mg/dL Urine HCG, Qual NEGATIVE (Negative) 03/07/22 Range/Units 16:07 WBC (4.0-10.5) x10^3/uL RBC (4.1-5.4) x10^6/uL Hgb (12.0-16.0) g/dL Hct (35-47) % MCV (78-100) fL MCH (26-32) pg MCHC (32-36) g/dL RDW (11.5-14.0) % Plt Count (150-450) x10^3/uL MPV (7.5-11.0) fL Gran % (36.0-66.0) % Immature Gran % (Auto) (0.00-0.4) % Nucleat RBC Rel Count (0.00-0.1) % Eos # (Auto) (0-0.5) x10^3/uL Immature Gran # (Auto) (0.00-0.03) x10^3u/L Absolute Lymphs (auto) (1.0-4.6) x10^3/uL Absolute Monos (auto) (0.0-1.3) x10^3/uL Absolute Nucleated RBC (0.00-0.01) x10^3u/L Lymphocytes % (24.0-44.0) % Monocytes % (0.0-12.0) % Eosinophils % (0.00-5.0) % Basophils % (0.0-0.4) % Absolute Granulocytes (1.4-6.9) x10^3/uL Basophils # (0-0.4) x10^3/uL Sodium (137-145) mmol/L Potassium (3.5-5.1) mmol/L Chloride (98-107) mmol/L Carbon Dioxide (22-30) mmol/L Anion Gap (5-15) MEQ/L BUN (7-17) mg/dL Creatinine (0.52-1.04) mg/dL Estimated GFR ML/MIN Glucose (74-106) mg/dL Calcium (8.4-10.2) mg/dL Total Bilirubin (0.2-1.3) mg/dL AST (14-36) U/L ALT (0-35) U/L Alkaline Phosphatase (38-126) U/L Serum Total Protein (6.3-8.2) g/dL Albumin (3.5-5.0) g/dL Urinalys Dipstick Clnc MAIN LAB Urine Color YELLOW (YELLOW) Urine Appearance CLEAR (CLEAR) Urine pH 6.5 (5-6) Ur Specific [place] 1.025 (1.005-1.025) POC Urine Protein Conf NEGATIVE (Negative) Urine Ketones NEGATIVE (NEGATIVE) Urine Nitrite NEGATIVE (NEGATIVE) Urine Bilirubin NEGATIVE (NEGATIVE) Urine Urobilinogen 0.2 (0-1) mg/dL Urine Leukocytes NEGATIVE (NEGATIVE) Urine WBC (Auto) 0-2 (0-5) /HPF Urine RBC (Auto) 0-2 (0-2) /HPF U Epithel Cells (Auto) NONE (FEW) /HPF Urine Bacteria (Auto) FEW A (NEGATIVE) /HPF Urine RBC TRACE-INTACT A (0-5) Lc/ul Ur Culture Indicated? NO Urine Glucose NEGATIVE (NEGATIVE) mg/dL Urine HCG, Qual (Negative) - Progress Progress: improved Progress Note: Patient reassessed. Pain improved not resolved. We advised admission for pain control patient declined. Patient received [place] from our ED for home. Prescription for the same was forwarded to patient's pharmacy. Patient agrees to follow-up with primary care doctor within 48 hours for evaluation. Portions of this note were created with voice recognition technology. There may be grammatical, spelling, punctuation or sound alike errors 03/07/22 20:46 Counseled pt/family regarding: lab results, diagnosis, need for follow-up, rad results - Departure Departure Disposition: Home Clinical Impression: Flank pain, Epiploic appendagitis, Nephrolithiasis, Leukocytosis Condition: Stable Critical Care Time: No Referrals: SHIRA MOJICA MD [Primary Care Provider] - Follow up/PCP as directed Additional Instructions: Discharge/Care Plan MANDY QIU was seen on 03/07/22 in the Emergency Room. The patient was counseled regarding Diagnosis,Lab results, Imaging studies, need for follow up and when to return to the Emergency Room. Prescriptions given: Discharge Note I have spoken with the patient and/or caregivers. I have explained the patient's condition, diagnosis and treatment plan based on the information available to me at this time. I have answered the patient's and/or caregiver's questions and addressed any concerns. The patient and/or caregivers have as good understanding of the patient's diagnosis, condition and treatment plan as can be expected at this point. The vital signs have been stable. The patient's condition is stable and appropriate for discharge from the emergency department. The patient will pursue further outpatient evaluation with the primary care physician or other designated or consulting physician as outlined in the discharge instructions. The patient and/or caregivers are agreeable to this plan of care and follow-up instructions have been explained in detail. The patient and/or caregivers have received these instruction. The patient/and or caregivers are aware that any significant change in condition or worsening of symptoms should prompt an immediate return to this or the closest emergency department or call 911. Prescriptions: Hydrocodone/APAP 5/325 [[place] 5/325 mg] 1 each PO Q6H PRN PRN 5 Days #10 tablet MDD 4 PRN Reason: Pain
[2022-03-07] MEDS ORDERED: MORPHINE SULFATE 4 MG INJ ONE ×2 (18:48→20:48)
[2022-03-07] MEDS ORDERED: NORCO 5/325 MG PO ONE (20:38)
[2022-03-07] MEDS ORDERED: NORCO 5/325 MG ONE (20:47)
[2022-03-07 20:57] VITALS: BP 129/83; PULSE 88; O2SAT 98
--- NOTE | 2022-03-08 08:39 | XRAY ---
Indication: Left flank pain. History kidney stones. Multiple contiguous axial images obtained through the abdomen and pelvis without contrast using renal stone protocol. Comparison: October 12, 2016 Lung bases clear. Heart not enlarged. Nonobstructing 5 mm left and 1 mm right renal calculi. No hydronephrosis or hydroureter. Noncontrasted stomach and bowel loops appear nonobstructed with normal air-filled appendix. Mid descending colon demonstrates small focal eccentric pericolonic stranding favoring epiploic appendagitis. Small cul-de-sac fluid presumed physiologic from rupture/leaking cyst. Again cholecystectomy and presumed partial hysterectomy. Remaining liver, pancreas, spleen, adrenal glands, kidneys, ureters, bladder, and aorta are unremarkable for noncontrast exam. Osseous structures intact. Impression: 1. Nonobstructing micro-calculus in each kidney. 2. New left mid descending colon epiploic appendagitis. 3. Small cul-de-sac fluid presumed physiologic.
== END 2022-03-07 21:03 | disposition home or self-care (01) ==
LOC: ED 15:07
DX: K63.89 Other specified diseases of intestine (principal); N20.0 Calculus of kidney; R10.9 Unspecified abdominal pain; D72.829 Elevated white blood cell count, unspecified; Z79.891 Long term (current) use of opiate analgesic; Z87.442 Personal history of urinary calculi; Z28.310 Unvaccinated for COVID-19
CPT/HCPCS: 36000; 36415; 74176; 80053; 81015; 81025; 85025; 96374; 96375; 96376; 99284; J2270; J2405; A9270-GY

== ENCOUNTER 2022-07-02 06:14 | Emergency (ER) | payer OTHER ==
[2022-07-02] MEDS ORDERED: Zofran 4 MG/2 ML VIAL IV ONE ×2 (06:33→08:16)
[2022-07-02] MEDS ORDERED: Sodium Chloride 0.9% 1000 ML 1,000 ML IV STA (06:33)
[2022-07-02] MEDS ORDERED: Hydromorphone 1 mg/ml Injection IV ONE ×2 (06:33→08:13)
[2022-07-02] MEDS ORDERED: Hydromorphone 1 mg/ml Injection ONE ×2 (06:37→08:16)
[2022-07-02] MEDS ORDERED: Sodium Chloride 0.9% 1000 ML 1,000 ML ONE (06:37)
[2022-07-02] MEDS ORDERED: Zofran 4 MG/2 ML VIAL ONE ×2 (06:37→08:16)
--- NOTE | 2022-07-02 07:02 | ERPHSYRPT ---
- History of Present Illness Time Seen by Provider: 07/02/22 06:50 Historian: patient Exam Limitations: no limitations Patient Subjective Stated Complaint: Pt reports "About five days ago I thought I had a UTI because I was having some burning and hesitancy. Last night I started having left lower back pain coming around into the front of my stomach, I think I have a kidney stone." Triage Nursing Assessment: Pt alert and oriented x3. No apparent respiratory distress. Ambulated to ED cot without difficulty. Was pacing in the waiting room holding onto her back, facial grimicing. Abdomen soft, nontender, flat. Physician History: Patient is a 46-year-old white female who started approximately a week ago with some dysuria on and off she also had some nausea but no vomiting diarrhea fever chills or sweats. She felt that with the dysuria she probably had a urinary tract infection she took some leftover antibiotic without improvement. At 10 PM last night she developed severe left flank pain which got markedly worse by 4:30 AM. She does have a history of renal stones and says that this is the same colicky type pain.Patient reports her previous ureteral stone was 12 mm and did require lithotripsy Timing/Duration: week(s) (1), intermittent, worse Activities at Onset: none Abdominal Pain Onset Location: flank (Left flank) Pain Radiation: groin (Left groin) Associated Symptoms: nausea, No diarrhea, No vomiting Allergies/Adverse Reactions: ketorolac [From Toradol] Allergy (Severe, Verified 07/02/22 06:27) Vomiting erythromycin base Allergy (Intermediate, Verified 07/02/22 06:27) Hives Sulfa (Sulfonamide Antibiotics) Allergy (Intermediate, Verified 07/02/22 06:27) Hives sulfamethoxazole [From Bactrim] Allergy (Intermediate, Verified 07/02/22 06:27) Hives trimethoprim [From Bactrim] Allergy (Intermediate, Verified 07/02/22 06:27) Hives Hx Tetanus, Diphtheria Vaccination/Date Given: Yes Hx Influenza Vaccination/Date Given: Yes Hx Pneumococcal Vaccination/Date Given: No Travel Risk - International Travel Have you traveled outside of the country in past 3 weeks: No - Coronavirus Screening Are you exhibiting any of the following symptoms?: No Close contact with a COVID-19 positive Pt in past 14-21 Days: No - Vaccine Status Have you recieved a Covid-19 vaccination: No - Review of Systems Constitutional: No Fever, No Chills Eyes: No Symptoms Ears, Nose, & Throat: No Symptoms Respiratory: No Cough, No Dyspnea Cardiac: No Chest Pain, No Edema, No Syncope Abdominal/Gastrointestinal: Nausea, No Abdominal Pain, No Vomiting, No Diarrhea Genitourinary Symptoms: Dysuria, Frequency, Flank Pain Musculoskeletal: No Back Pain, No Neck Pain Skin: No Rash Neurological: No Dizziness, No Focal Weakness, No Sensory Changes Psychological: No Symptoms Endocrine: No Symptoms All Other Systems: Reviewed and Negative - Past Medical History Pertinent Past Medical History: Yes Neurological History: No Pertinent History ENT History: No Pertinent History Cardiac History: No Pertinent History Respiratory History: No Pertinent History Endocrine Medical History: No Pertinent History History: Other Other Medical History: KIDNEY STONES. LUPUS - Past Surgical History Past Surgical History: Yes Gastrointestinal: Cholecystectomy Female Surgical History: Hysterectomy, Section Other Surgical History: LITHOTRIPSY STONE REMOVAL - Social History Smoking Status: Never smoker Exposure to second hand smoke: No Drug Use: none Patient Lives Alone: No - Female History Hx Now: No - Nursing Vital Signs Nursing Vital Signs: Initial Vital Signs Temperature 96.9 F 07/02/22 06:20 Pulse Rate 82 07/02/22 06:20 Respiratory Rate 16 07/02/22 06:20 Blood Pressure 135/86 07/02/22 06:20 O2 Sat by Pulse Oximetry 96 07/02/22 06:20 Pain Scale Pain Intensity 5 - Physical Exam General Appearance: mild distress Eye Exam: PERRL/EOMI, eyes nml inspection Ears, Nose, Throat Exam: normal ENT inspection, pharynx normal, moist mucous membranes Neck Exam: normal inspection, non-tender, supple, full range of motion Respiratory Exam: normal breath sounds, lungs clear, No respiratory distress Cardiovascular Exam: regular rate/rhythm, normal heart sounds Gastrointestinal/Abdomen Exam: soft, No tenderness, No mass Back Exam: normal inspection, normal range of motion, CVA tenderness (Left CVA tenderness), No vertebral tenderness Extremity Exam: normal inspection, normal range of motion, pelvis stable Neurologic Exam: alert, oriented x 3, cooperative, normal mood/affect, nml cerebellar function, sensation nml, No motor deficits Skin Exam: normal color, warm, dry SpO2: 96 - Course Nursing assessment & vital signs reviewed: Yes - CT Exams Abdomen/Pelvis CT Interpretation: Tele-radiologist Report, Other (Telemetry radiologist report was reviewed 5 mm stone left ureter 2 cm from the UVJ) Ordered Tests: Active Orders 24 hr Category Date Time Status IV Insertion STAT Care 07/02/22 06:33 Active ABDOMEN AND PELVIS W/0 CONTRAS [CT] Stat Exams 07/02/22 06:33 Taken AMYLASE Stat Lab 07/02/22 06:55 Completed CBC W DIFF Stat Lab 07/02/22 06:55 Received CMP Stat Lab 07/02/22 06:55 Completed CULTURE,URINE Stat Lab 07/02/22 06:39 Received LIPASE Stat Lab 07/02/22 06:55 Completed UA W/RFX UR CULTURE Stat Lab 07/02/22 06:39 Completed Medication Summary Discontinued Medications Generic Name Dose Route Start Last Admin Trade Name Freq PRN Reason Stop Dose Admin Hydromorphone HCl 1 mg 07/02/22 06:33 07/02/22 06:48 Hydromorphone 1 Mg/1ml Inj 1 Mg/Ml Syringe IV 07/02/22 06:34 1 mg STAT ONE Administration Hydromorphone HCl Confirm 07/02/22 06:37 Hydromorphone 1 Mg/1ml Inj 1 Mg/Ml Syringe Administered 07/02/22 06:38 Dose 1 mg .ROUTE .STK-MED ONE Sodium Chloride 1,000 mls @ 999 mls/hr 07/02/22 06:33 07/02/22 06:48 Sodium Chloride 0.9% 1000 Ml IV 07/02/22 07:33 999 mls/hr .Q1H1M STA Administration Sodium Chloride Confirm 07/02/22 06:37 Sodium Chloride 0.9% 1000 Ml Administered 07/02/22 06:38 Dose 1,000 mls @ ud .ROUTE .STK-MED ONE Ondansetron HCl 4 mg 07/02/22 06:33 07/02/22 06:48 Ondansetron Hcl 4 Mg/2 Ml Vial IV 07/02/22 06:34 4 mg STAT ONE Administration Ondansetron HCl Confirm 07/02/22 06:37 Ondansetron Hcl 4 Mg/2 Ml Vial Administered 07/02/22 06:38 Dose 4 mg .ROUTE .STK-MED ONE Lab/Rad Data: Laboratory Result Diagrams 07/02/22 06:55 Laboratory Results 07/02/22 07/02/22 Range/Units 06:55 06:39 Sodium 141 (137-145) mmol/L Potassium 3.8 (3.5-5.1) mmol/L Chloride 106 (98-107) mmol/L Carbon Dioxide 24 (22-30) mmol/L Anion Gap 15.4 H (5-15) MEQ/L BUN 8 (7-17) mg/dL Creatinine 0.64 (0.52-1.04) mg/dL Estimated GFR > 60.0 ML/MIN Glucose 107 H (74-106) mg/dL Calcium 8.7 (8.4-10.2) mg/dL Total Bilirubin 0.40 (0.2-1.3) mg/dL AST 22 (14-36) U/L ALT 23 (0-35) U/L Alkaline Phosphatase 78 (38-126) U/L Serum Total Protein 7.2 (6.3-8.2) g/dL Albumin 4.2 (3.5-5.0) g/dL Amylase 61 (30-110) U/L Lipase 55 (23-300) U/L Urine Color Dark Yellow A (Yellow) Urine Appearance Turbid A (Clear) Urine pH 5.5 (4.6-8.0) Ur Specific [place] >=1.030 A (1.005-1.030) Urine Protein 30 (Negative) Urine Glucose (UA) Negative (Negative) mg/dL Urine Ketones Negative (Negative) Urine Blood Large A (Negative) Urine Nitrite Negative (Negative) Urine Bilirubin Negative (Negative) Urine Urobilinogen 1.0 A (0.2) mg/dL Ur Leukocyte Esterase Trace A (Negative) U Hyaline Cast (Auto) NONE SEEN (0-2) /LPF Urine Microscopic RBC >100 A (0-5) /HPF Urine Microscopic WBC 11-20 A (0-5) /HPF Ur Epithelial Cells Many A (None Seen) /HPF Calcium Oxalate Crystal 3-5 A (None Seen) /HPF Urine Bacteria Few A (None Seen) /HPF Urine Yeast (Budding) Few A (None Seen) /HPF Urine Culture Reflexed YES (NO) - Progress Progress: pain not gone completely Medical Desision Making - Diagnostic Testing Diagnostic test were ordered, analyzed, and reviewed by me: Yes Radiological Interpretation: Reviewed by me - Risk of complications The pt has a mod risk of morbidity or mortality based on: Need for prescription drug management, Need for minor surgical intervention in patient with know risk factors - Departure Departure Disposition: Home Clinical Impression: Left ureteral stone Condition: Stable Critical Care Time: No Referrals: SHIRA MOJICA MD [Primary Care Provider] - Follow up/PCP as directed Instructions: Kidney Stones (DC) Prescriptions: Cephalexin Mh 500 mg [Keflex 500 mg] 500 mg PO Q6H 7 Days #28 cap Oxycodone HCl/Acetaminophen [Percocet 7.5-325 mg Tablet] 1 each PO Q6H 3 Days #12 tablet MDD 4
[2022-07-02 07:08] LABS: Absolute Neutrophil Ct (ANC) 5.61 x10^3/uL (1.4-6.9); BASOPHIL % 0.7 % (0.0-0.4); Basophil (Absolute #) 0.07 x10^3/uL (0-0.4); Eosinophil % 4.4 % (0.00-5.0); Eosinophil (Absolute #) 0.41 x10^3/uL (0-0.5); Hematocrit 38.5 % (35-47); Hemoglobin 12.8 g/dL (12.0-16.0); IMMATURE GRAN # 0.04 x10^3u/L (0.00-0.03); IMMATURE GRAN % 0.4 % (0.00-0.4); Lymphocyte (Absolute #) 2.55 x10^3/uL (1.0-4.6); Lymphocytes % 27.1 % (24.0-44.0); Mean Cell Volume 89.3 fL (78-100); Mean Corpuscular Hemoglobin 29.7 pg (26-32); Mean Corpuscular Hgb Concent. 33.2 g/dL (32-36); Mean Platelet Volume 10.2 fL (7.5-11.0); Monocyte (Absolute #) 0.72 x10^3/uL (0.0-1.3); Monocytes % 7.7 % (0.0-12.0); Neutrophil % 59.7 % (36.0-66.0); Platelet Count 276 x10^3/uL (150-450); Red Blood Count 4.31 x10^6/uL (4.1-5.4); Red Cell Distribution Width 12.8 % (11.5-14.0); White Blood Count 9.4 x10^3/uL (4.0-10.5)
[2022-07-02 07:32] LABS: ALBUMIN 4.2 g/dL (3.5-5.0); ALKALINE PHOSPHATASE 78 U/L (38-126); AMYLASE 61 U/L (30-110); ANION GAP 15.4 MEQ/L (5-15); BLOOD UREA NITROGEN 8 mg/dL (7-17); CHLORIDE 106 mmol/L (98-107); Calcium 8.7 mg/dL (8.4-10.2); Carbon Dioxide 24 mmol/L (22-30); Creatinine 1 0.64 mg/dL (0.52-1.04); EST GLOMERULAR FILTRATION RATE > 60.0 ML/MIN; Glucose 107 mg/dL (74-106); LIPASE 55 U/L (23-300); Potassium 3.8 mmol/L (3.5-5.1); SGOT/AST 22 U/L (14-36); SGPT/ALT 23 U/L (0-35); SODIUM 141 mmol/L (137-145); Total Protein 7.2 g/dL (6.3-8.2)
[2022-07-02 07:49] LABS: Appearance Turbid (Clear); Bacteria Few /HPF (None Seen); Bilirubin Negative (Negative); Blood Large (Negative); Epithelial Cells Many /HPF (None Seen); Glucose, Urine Negative (Negative); Hyaline Casts NONE SEEN /LPF (0-2); Ketones Negative (Negative); Leukocyte Esterase Trace (Negative); Nitrite Negative (Negative); Ph 5.5 (4.6-8.0); Protein,Urine Dip 30 (Negative); RBC >100 /HPF (0-5); Specific Gravity >=1.030 (1.005-1.030)
[2022-07-02 07:55] LABS: Budding Yeast Few /HPF (None Seen)
[2022-07-02 07:56] LABS: ADD URINE CULTURE? YES (NO)
[2022-07-02] MEDS ORDERED: ROCEPHIN 1 Gm-D5w 50 ml Bag** 1 G/50 ML IVPB IV STA (08:14)
[2022-07-02] MEDS ORDERED: ROCEPHIN 1 Gm-D5w 50 ml Bag** 1 G/50 ML IVPB IV ONE (08:16)
[2022-07-02 08:18] VITALS: BP 146/97; PULSE 64; O2SAT 98
--- NOTE | 2022-07-02 08:20 | XRAY ---
Indication: Left flank pain. Multiple contiguous axial images obtained through the abdomen and pelvis without contrast. Comparison: March 07, 2022 Lung bases remain clear. Heart not enlarged. Stable small hiatal hernia. Noncontrasted stomach and bowel loops nonobstructed with normal appendix. New 5 mm calculus distal left ureter approximately 2 cm proximal to UVJ. Proximal left ureter is prominent up to 7 mm along with mild hydronephrosis consistent with partial obstructive uropathy. Additional faint bilateral nephrocalcinosis. No free fluid/air. Again cholecystectomy and hysterectomy. Remaining liver, pancreas, spleen, adrenal glands, kidneys, ureters, bladder, and aorta are unremarkable for noncontrast exam. Osseous structures intact again with minimal dextroscoliosis. Impression: 1. New 5 mm distal left ureter calculus producing partial obstruction as detailed. Additional faint bilateral nephrocalcinosis. 2. Again chronic findings including small hiatal hernia and dextroscoliosis. Comment: Preliminary interpretation a by [facility]. No critical discrepancy.
== END 2022-07-02 09:09 | disposition home or self-care (01) ==
LOC: ED 06:14
DX: N20.1 Calculus of ureter (principal); Z87.442 Personal history of urinary calculi; R30.0 Dysuria; R10.9 Unspecified abdominal pain; Z79.891 Long term (current) use of opiate analgesic; Z28.310 Unvaccinated for COVID-19
CPT/HCPCS: 36000; 36415; 74176; 80053; 81001; 82150; 83690; 85025; 87077; 87086; 87186; 96360; 96365; 96374; 96375; 96376; 99284; J0696; J1170; J2405

== ENCOUNTER 2023-08-23 22:03 | Emergency (ER) | payer BC, OTHER ==
[2023-08-23 22:31] VITALS: TEMP 97.9
[2023-08-23] MEDS ORDERED: Sodium Chloride 0.9% 1000 ML 1,000 ML ONE (22:36)
--- NOTE | 2023-08-23 22:37 | ERPHSYRPT ---
- History of Present Illness Time Seen by Provider: 08/23/23 22:30 Source: patient Exam Limitations: no limitations Patient Subjective Stated Complaint: pt states that she hasn't had a BM since 08/17/23. reports that starting Monday08/21/23 she has had diffuse entire abdomin al pain that radiates to back that is constant with intermittent increases in intensity. describes it as dull, ache, cramp rated 7/10. denies vomiting but reports intermittent nausea. Triage Nursing Assessment: pt ambulated to room 8 independently with slow steady gait after standing on scale for weight acquisition and to bathroom to provide urine sample for lab testing. pt is alert and oriented times three, able to speak in complete sentences, able to move all extremities, and with resp even and unlabored without use of accessory muscles. abd rounded, slightly tender upon palpation, slightly distended, and with hypoactive bowel sounds in all quadrants. denies cp, samson, lightheadedness, dizziness, sob, difficulty breathing, difficulty/pain with urination but endorses frequently having the feeling that she needs to urinate but no U.O. denies vomiting but is nauseated. Physician History: 47-year-old female presents emergency department for evaluation of generalized abdominal pain that started 2 to 3 days ago. Patient reports that she has not had a bowel movement approximately 6 days. Pain described as a ache and or an intermittent cramping sensation with occasional bouts of radiation to her back. Pain rated at 7 out of 10 at its worst. Patient declined pain medication. She also reports occasional episodes of nausea. She is currently not nauseous. No associated chest pain or shortness of breath. No trauma no fever. Patient denies a history of the same. She voices no other complaints or concerns at this time. Portions of this note were created with voice recognition technology. There may be grammatical, spelling, punctuation or sound alike errors Timing/Duration: day(s) (6 days) Severity: moderate Modifying Factors: Improves With: nothing Associated Symptoms: nausea, abdominal pain, No shortness of breath Allergies/Adverse Reactions: ketorolac [From Toradol] Allergy (Severe, Verified 07/02/22 06:27) Vomiting erythromycin base Allergy (Intermediate, Verified 07/02/22 06:27) Hives Sulfa (Sulfonamide Antibiotics) Allergy (Intermediate, Verified 07/02/22 06:27) Hives sulfamethoxazole [From Bactrim] Allergy (Intermediate, Verified 07/02/22 06:27) Hives tramadol Allergy (Intermediate, Verified 08/23/23 22:13) Headache trimethoprim [From Bactrim] Allergy (Intermediate, Verified 07/02/22 06:27) Hives Home Medications: Semaglutide [Ozempic] 0.25 mg SQ WEEKLY 08/23/23 [History] Hx Tetanus, Diphtheria Vaccination/Date Given: Yes Hx Influenza Vaccination/Date Given: Yes Hx Pneumococcal Vaccination/Date Given: No Immunizations Up to Date: Yes Travel Risk - International Travel Have you traveled outside of the country in past 3 weeks: No - Emerging Infectious Disease Are you exhibiting symptoms associated with any current EIDs: No - Review of Systems Constitutional: No Symptoms, No Fever, No Chills Eyes: No Symptoms Ears, Nose, & Throat: No Symptoms Respiratory: No Symptoms, No Cough, No Dyspnea Cardiac: No Symptoms, No Chest Pain, No Edema, No Syncope Abdominal/Gastrointestinal: No Symptoms, No Abdominal Pain, No Nausea, No Vomiting, No Diarrhea Genitourinary Symptoms: No Symptoms, No Dysuria Musculoskeletal: No Symptoms, No Back Pain, No Neck Pain Skin: No Symptoms, No Rash Neurological: No Symptoms, No Dizziness, No Focal Weakness, No Sensory Changes Psychological: No Symptoms Endocrine: No Symptoms Hematologic/Lymphatic: No Symptoms Immunological/Allergic: No Symptoms All Other Systems: Reviewed and Negative - Past Medical History Pertinent Past Medical History: Yes Neurological History: No Pertinent History ENT History: No Pertinent History Cardiac History: No Pertinent History Respiratory History: No Pertinent History Endocrine Medical History: No Pertinent History Musculoskeletal History: No Pertinent History GI Medical History: No Pertinent History History: Other Psycho-Social History: No Pertinent History Female Reproductive Disorders: No Pertinent History Other Medical History: KIDNEY STONES. SLE-LUPUS - Past Surgical History Past Surgical History: Yes Neuro Surgical History: No Pertinent History Cardiac: No Pertinent History Respiratory: No Pertinent History Gastrointestinal: Cholecystectomy Genitourinary: Other Musculoskeletal: No Pertinent History Female Surgical History: Hysterectomy, Section Other Surgical History: LITHOTRIPSY STONE REMOVAL x 2 last time Jun 2022 - Female History Hx Last Menstrual Period: hysterectomy Hx Now: No - Social History Smoking Status: Never smoker Exposure to second hand smoke: No Drug Use: none Patient Lives Alone: No - Nursing Vital Signs Nursing Vital Signs: Initial Vital Signs Pulse Rate 83 08/23/23 22:13 Respiratory Rate 18 08/23/23 22:13 Blood Pressure 131/89 08/23/23 22:13 O2 Sat by Pulse Oximetry 98 08/23/23 22:13 Pain Scale Pain Intensity 7 - Physical Exam General Appearance: no apparent distress, alert Eye Exam: PERRL/EOMI, eyes nml inspection Ears, Nose, Throat Exam: normal ENT inspection, TMs normal, pharynx normal, moist mucous membranes Neck Exam: normal inspection, non-tender, supple, full range of motion Respiratory Exam: normal breath sounds, lungs clear, airway intact, No respiratory distress Cardiovascular Exam: regular rate/rhythm, normal heart sounds, normal peripheral pulses Gastrointestinal/Abdomen Exam: soft, normal bowel sounds, other (Hypoactive bowel sounds.), No tenderness, No mass Back Exam: normal inspection, normal range of motion, No CVA tenderness, No vertebral tenderness Extremity Exam: normal inspection, normal range of motion, pelvis stable Neurologic Exam: alert, oriented x 3, cooperative, normal mood/affect, sensation nml, No motor deficits Skin Exam: normal color, warm, dry, No rash Lymphatic Exam: No adenopathy SpO2 Interpretation: normal SpO2: 98 O2 Delivery: Room Air - Course Nursing assessment & vital signs reviewed: Yes - CT Exams Abdomen/Pelvis CT Interpretation: Tele-radiologist Report (Right nephrolithiasis. CT abdomen pelvis negative for acute pathology.) Ordered Tests: Active Orders 24 hr Category Date Time Status IV Insertion STAT Care 08/23/23 22:22 Active ABDOMEN AND PELVIS W/0 CONTRAS [CT] Stat Exams 08/23/23 22:30 Completed CBC W DIFF Stat Lab 08/23/23 22:19 Completed CMP Stat Lab 08/23/23 22:19 Completed CULTURE,URINE Stat Lab 08/23/23 22:09 Received UA W/RFX UR CULTURE Stat Lab 08/23/23 22:09 Completed Medication Summary Generic Name Dose Route Start Last Admin Trade Name Freq PRN Reason Stop Dose Admin Sodium Chloride 1,000 mls @ 100 mls/hr 08/23/23 22:30 08/23/23 22:48 Sodium Chloride 0.9% 1000 Ml IV 09/22/23 22:29 100 mls/hr .Q10H DIAMOND Administration Lab/Rad Data: Laboratory Result Diagrams 08/23/23 22:19 08/23/23 22:19 Laboratory Results 08/23/23 08/23/23 08/23/23 Range/Units 22:19 22:19 22:09 WBC 13.7 H (4.0-10.5) x10^3/uL RBC 4.64 (4.1-5.4) x10^6/uL Hgb 13.8 (12.0-16.0) g/dL Hct 39.9 (35-47) % MCV 86.0 (78-100) fL MCH 29.7 (26-32) pg MCHC 34.6 (32-36) g/dL RDW 12.1 (11.5-14.0) % Plt Count 293 (150-450) x10^3/uL MPV 10.5 (7.5-11.0) fL Gran % 61.9 (36.0-66.0) % Immature Gran % (Auto) 0.3 (0.00-0.4) % Nucleat RBC Rel Count 0.0 (0.00-0.1) % Eos # (Auto) 1.00 H (0-0.5) x10^3/uL Immature Gran # (Auto) 0.04 H (0.00-0.03) x10^3u/L Absolute Lymphs (auto) 3.19 (1.0-4.6) x10^3/uL Absolute Monos (auto) 0.93 (0.0-1.3) x10^3/uL Absolute Nucleated RBC 0.00 (0.00-0.01) x10^3u/L Lymphocytes % 23.3 L (24.0-44.0) % Monocytes % 6.8 (0.0-12.0) % Eosinophils % 7.3 H (0.00-5.0) % Basophils % 0.4 (0.0-0.4) % Absolute Granulocytes 8.45 H (1.4-6.9) x10^3/uL Basophils # 0.06 (0-0.4) x10^3/uL Sodium 140 (135-145) mmol/L Potassium 3.4 L (3.5-5.1) mmol/L Chloride 106 (98-107) mmol/L Carbon Dioxide 25 (22-30) mmol/L Anion Gap 11.3 (5-15) MEQ/L BUN 11 (7-17) mg/dL Creatinine 0.79 (0.52-1.04) mg/dL Estimated GFR 94.0 ML/MIN Glucose 104 (74-106) mg/dL Calcium 9.4 (8.4-10.2) mg/dL Total Bilirubin 0.40 (0.2-1.3) mg/dL AST 28 (14-36) U/L ALT 26 (0-35) U/L Alkaline Phosphatase 82 (38-126) U/L Serum Total Protein 7.8 (6.3-8.2) g/dL Albumin 4.7 (3.5-5.0) g/dL Urine Color Yellow (Yellow) Urine Appearance Clear (Clear) Urine pH 6.0 (4.6-8.0) Ur Specific Kirkman >=1.030 A (1.005-1.030) Urine Protein 30 (Negative) Urine Glucose (UA) Negative (Negative) mg/dL Urine Ketones Trace A (Negative) Urine Blood Negative (Negative) Urine Nitrite Negative (Negative) Urine Bilirubin Negative (Negative) Urine Urobilinogen 1.0 A (0.2) mg/dL Ur Leukocyte Esterase Negative (Negative) U Hyaline Cast (Auto) NONE SEEN (0-2) /LPF Urine Microscopic RBC 3-5 (0-5) /HPF Urine Microscopic WBC 6-10 A (0-5) /HPF Ur Epithelial Cells Moderate A (None Seen) /HPF Urine Bacteria Moderate A (None Seen) /HPF Urine Culture Reflexed YES (NO) - Progress Progress: improved Progress Note: 47-year-old female presents emergency department for evaluation of generalized abdominal pain for the past 3 days. Patient has not had a bowel movement in 6 days per patient. Physical exam reveals distended abdomen. No active pain. Patient declined pain medication. Laboratory workup revealed a slight leukocytosis of 13.7 CT abdomen pelvis negative for acute pathology. However I looked at the CAT scan and I see the slightly increased stool burden at the asc ending colon. There is some pockets of bowel gas scattered throughout the colon. Patient has taken MiraLAX at home. No significant improvement. Patient will try magnesium citrate. Patient currently resting comfortably. No active pain. Will discharge home. 08/24/23 00:02 Potassium 3.4. P.o. potassium administered. Portions of this note were created with voice recognition technology. There may be grammatical, spelling, punctuation or sound alike errors Complexity problem addressed is moderate acute complicated. No critical care time. Complex data reviewed and analyzed is moderate. Test ordered test reviewed results analyzed and correlated clinically with history and physical e xamination. Risk of complication and or risk of morbidity/mortality patient management is low. Vital stable. Time spent to discharge patient is approximately 15 minutes. Plan of care established for shared decision making. No social determinants of health present impede follow-up Portions of this note were created with voice recognition technology. There may be grammatical, spelling, punctuation or sound alike errors 08/24/23 00:03 Counseled pt/family regarding: lab results, diagnosis, need for follow-up, rad results - Departure Departure Disposition: Home Clinical Impression: Constipation, Ureterolithiasis Condition: Stable Critical Care Time: No Referrals: SHIRA MOJICA MD [Primary Care Provider] - Follow up/PCP as directed Additional Instructions: Discharge/Care Plan MANDY QIU was seen on 08/24/23 in the Emergency Room. The patient was counseled regarding Diagnosis,Lab results, Imaging studies, need for follow up and when to return to the Emergency Room. Prescriptions given: Discharge Note I have spoken with the patient and/or caregivers. I have explained the patient's condition, diagnosis and treatment plan based on the information available to me at this time. I have answered the patient's and/or caregiver's questions and addressed any concerns. The patient and/or caregivers have as good understanding of the patient's diagnosis, condition and treatment plan as can be expected at this point. The vital signs have been stable. The patient's condition is stable and appropriate for discharge from the emergency department. The patient will pursue further outpatient evaluation with the primary care physician or other designated or consulting physician as outlined in the discharge instructions. The patient and/or caregivers are agreeable to this plan of care and follow-up instructions have been explained in detail. The patient and/or caregivers have received these instruction. The patient/and or caregivers are aware that any significant change in condition or worsening of symptoms should prompt an immediate return to this or the closest emergency department or call 911.
[2023-08-23 22:46] LABS: Absolute Neutrophil Ct (ANC) 8.45 x10^3/uL (1.4-6.9); BASOPHIL % 0.4 % (0.0-0.4); Basophil (Absolute #) 0.06 x10^3/uL (0-0.4); Eosinophil % 7.3 % (0.00-5.0); Hematocrit 39.9 % (35-47); Hemoglobin 13.8 g/dL (12.0-16.0); IMMATURE GRAN # 0.04 x10^3u/L (0.00-0.03); IMMATURE GRAN % 0.3 % (0.00-0.4); Lymphocyte (Absolute #) 3.19 x10^3/uL (1.0-4.6); Lymphocytes % 23.3 % (24.0-44.0); Mean Corpuscular Hemoglobin 29.7 pg (26-32); Mean Corpuscular Hgb Concent. 34.6 g/dL (32-36); Mean Platelet Volume 10.5 fL (7.5-11.0); Monocyte (Absolute #) 0.93 x10^3/uL (0.0-1.3); Monocytes % 6.8 % (0.0-12.0); Neutrophil % 61.9 % (36.0-66.0); Platelet Count 293 x10^3/uL (150-450); Red Blood Count 4.64 x10^6/uL (4.1-5.4); Red Cell Distribution Width 12.1 % (11.5-14.0); White Blood Count 13.7 x10^3/uL (4.0-10.5)
[2023-08-23] MEDS: Sodium Chloride 0.9% 1000 ML 1,000 ML IV SCH (22:48)
[2023-08-23 22:54] LABS: Appearance Clear (Clear); Bacteria Moderate /HPF (None Seen); Bilirubin Negative (Negative); Blood Negative (Negative); Epithelial Cells Moderate /HPF (None Seen); Glucose, Urine Negative (Negative); Hyaline Casts NONE SEEN /LPF (0-2); Ketones Trace (Negative); Leukocyte Esterase Negative (Negative); Nitrite Negative (Negative); Protein,Urine Dip 30 (Negative); Specific Gravity >=1.030 (1.005-1.030)
[2023-08-23 22:55] LABS: ADD URINE CULTURE? YES (NO)
[2023-08-23 23:03] LABS: ALBUMIN 4.7 g/dL (3.5-5.0); ANION GAP 11.3 MEQ/L (5-15); BILIRUBIN,TOTAL 0.4 mg/dL (0.2-1.3); Calcium 9.4 mg/dL (8.4-10.2); Creatinine 1 0.79 mg/dL (0.52-1.04); Potassium 3.4 mmol/L (3.5-5.1); Total Protein 7.8 g/dL (6.3-8.2)
--- NOTE | 2023-08-23 23:43 | XRAY ---
CLINICAL HISTORY: pain COMPARISON: None. TECHNIQUE: CT scan of the abdomen and pelvis was performed without IV contrast. Coronal and sagittal reconstructive images were also obtained. One of the following dose reduction techniques was utilized for this exam: Automated exposure control, adjustment of the mA and/or kV according to patient size, and use of iterative reconstruction. FINDINGS: Limited organ parenchymal evaluation within the limitations of noncontrast study. Sections of lower thorax show no significant abnormality. Abdomen: The liver is of average size. No focal or diffuse parenchymal abnormality. The intrahepatic biliary radicals and the bile ducts are normal. The gallbladder is surgically removed. The spleen, pancreas, and adrenal glands are unremarkable. A 3 mm calculus in the inferior calyx of right kidney. Tiny 1-2 mm faint hyperdense foci are seen in the upper calyces of both kidneys, could represent tiny calculi/concretions. The kidneys are otherwise normal in size and shape. No hydronephrosis. The cecum is low lying. The ascending colon, the transverse colon, the descending colon, visualized small bowel loops are unremarkable. Appendix appears unremarkable. Pelvis: The urinary bladder is not distended. The uterus is surgically removed. No adnexal lesions. No evidence of pelvic lymphadenopathy. No definite bony abnormalities could be depicted. IMPRESSION: A non-obstructive 3 mm calculus in inferior calyx of right kidney. Tiny 1-2 mm faint hyperdense foci in the upper calyces of both kidneys, could represent tiny calculi/concretions. Electronically Signed by: Luan Lazaro MD. (08/23/2023 23:39:12 EDT)
[2023-08-23 23:57] VITALS: RESP 18
[2023-08-24 00:02] VITALS: BP 131/83; PULSE 83
[2023-08-24] MEDS ORDERED: Klor Con ONE (00:05)
[2023-08-24 00:06] VITALS: O2SAT 98
[2023-08-24] MEDS: Klor Con PO ONE (00:06)
== END 2023-08-24 00:38 | disposition home or self-care (01) ==
LOC: ED 22:03
DX: K59.00 Constipation, unspecified (principal); N20.1 Calculus of ureter; R10.84 Generalized abdominal pain; Z79.85 Long-term (current) use of injectable non-insulin antidiabetic drugs
CPT/HCPCS: 36000; 36415; 74176; 80053; 81001; 83690; 85025; 87086; 99284; A9270-GY